=== PATIENT | female | born 1980 | race Caucasian/White ===

== ENCOUNTER → 2024-04-24 16:31 | Outpatient (REF) | payer BC, SELFPAY | LOC: HWWDC 16:31 | PROVIDERS: ATTENDING PHYSICIAN Nurse Practitioner; REFERRING PHYSICIAN Obstetrics & Gynecology | DX: Z12.31 Encounter for screening mammogram for malignant neoplasm of breast (principal) | CPT/HCPCS: 77063; 77067 ==

== ENCOUNTER → 2024-05-07 08:51 | Outpatient (REF) | payer BC, SELFPAY | LOC: WDC 08:51 | PROVIDERS: ATTENDING PHYSICIAN Nurse Practitioner | DX: R92.8 Other abnormal and inconclusive findings on diagnostic imaging of breast (principal) | CPT/HCPCS: 76642 ==

== ENCOUNTER → 2024-08-07 09:59 | Outpatient (REF) | payer BC, SELFPAY | LOC: HWRAD 09:59 | PROVIDERS: FAMILY PHYSICIAN Nurse Practitioner | DX: N93.9 Abnormal uterine and vaginal bleeding, unspecified (principal) | CPT/HCPCS: 76830; 76856 ==

== ENCOUNTER 2024-11-11 06:49 | Emergency (ER) | payer BC, SELFPAY ==
[2024-11-11] VITALS (13 sets, daily range): BP systolic 94–161; BP diastolic 69–91; BMI 30.7
[2024-11-11 07:07] LABS: % Eosinophils 7.3 % (0-6); % Immature Granulocytes 0.7 % (0-0.5); % Lymphocytes 34.1 % (20.5-51.1); % Monocytes 8.2 % (1.7-9.3); % Neutrophils 48.7 % (42.2-75.2); Absolute Basophils 0.1 10^3/uL (0-0.2); Absolute Eosinophils 0.7 10^3/uL (0-0.7); Absolute Immature Granulocytes 0.1 10^3/uL (0-0.05); Absolute Lymphocytes 3.1 10^3/uL (1.2-3.4); Absolute Monocytes 0.7 10^3/uL (0.1-0.6); Absolute Neutrophils 4.4 10^3/uL (1.4-6.5); Hematocrit 31.3 % (37.0-47.0); Hemoglobin 10.3 g/dL (12.0-16.0); Mean Corp Hgb Conc. 32.9 g/dL (33.0-37.0); Mean Corpuscular Hgb 28.9 pg (27.0-31.0); Mean Corpuscular Volume 87.9 fL (81.0-99.0); Mean Platelet Volume 9.1 fL (7.4-10.4); Nucleated Red Blood Cells % 0 %; Platelet Count 378 10^3/uL (130-400); Red Blood Cell Count 3.56 10^6/uL (4.20-5.40); Red Cell Dist. Width 12.9 % (11.5-14.5); White Blood Cell Count 9.1 10^3/uL (4.8-10.8)
[2024-11-11 07:26] LABS: ALT (SGPT) 16 U/L (0-35); AST (SGOT) 21 U/L (14-36); Albumin 4.5 g/dl (3.5-5.0); Alkaline Phosphatase 49 U/L (38-126); Blood Urea Nitrogen 13 mg/dl (7-17); Calcium 8.4 mg/dl (8.4-10.2); Carbon Dioxide 21 mmol/L (22-30); Chloride 105 mmol/L (98-107); Estimated Creatinine Clearance 99 ml/min; Glucose 122 mg/dl (70-99); Potassium 3.9 mmol/L (3.5-5.1); Sodium 140 mmol/L (135-145); Total Bilirubin 0.4 mg/dl (0.2-1.3); Total Protein 7.2 g/dl (6.3-8.2); eGFR > 60.00
[2024-11-11 08:34] LABS: HCG, Serum Qualitative Screen Negative
--- NOTE | 2024-11-11 08:42 | EDRN ---
still currently awaiting for a provider to see the pt
--- NOTE | 2024-11-11 09:00 | EDRN ---
the pt pressed the call kilpatrick and this RN entered the pts room, the pt stated that she needed to use the bathroom, the pt ambulated to the bathroom independently without difficulty and with no c/o lightheadedness or dizziness and the pt stated that
she bled again and needed a pad, this RN provided the pt with a pad, the pt was able to ambulate back to the stretcher within no issues, will continue to monitor the pt closely
--- NOTE | 2024-11-11 09:37 | EDRN ---
provider currently at the pts bedside
--- NOTE | 2024-11-11 09:46 | ED.GENMED ---
History of Present Illness
<Rhett Zamudio MD, Resident - Last Filed: 11/11/24 13:40>
General
Chief Complaint: Fainting/Passed Out
Source: patient
Exam Limitations: none
Time Seen by Provider: 11/11/24 09:16
Nursing documentation reviewed up to this point in time: agreed with
Travel History
Have you traveled to any high risk areas for coronavirus over the past 14 days?: No
Have you had any contact with someone who has COVID-19?: No
Do you have any symptoms of coronavirus? Fever > 100 degrees, chills, cough, shortness of breath, sore throat, loss of taste or smell, muscle aches, or headache?: No
History of Present Illness
History of Present Illness:
This is a 44-year-old female with PMH of ADPKD, anemia, exercise-induced asthma, who presented to the ED with dizziness and heavy vaginal bleeding. Patient reports that she she had a biopsy for uterine fibroid 2 weeks ago with mild bleeding that
continued to improve until early this morning when she started having heavy bleeding. She took 1 tablet of tranexamic acid and reports that it seemed to help. However patient decided to come to the ED due to dizziness and fear of passing out.
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 She also has mild hypogastric abdominal cramping since taking TXA. She denies family history of hemophilia. No nausea, vomiting, diarrhea, chest pain or
shortness of breath. She denies fever, chills, urinary symptoms.
Past History
<Rhett Zamudio MD, Resident - Last Filed: 11/11/24 13:40>
Past History
ED Past Medical History: Other (Autosomal dominant polycystic kidney disease)
ED Past Surgical History: and Gynecological (Uterine biopsy)
Social History
Tobacco: Non-smoker
Alcohol: Occasional
Personal:
Living: with family
Employment: Employed
Review of Systems
<Rhett Zamudio MD, Resident - Last Filed: 11/11/24 13:40>
Review of Systems
All Other Systems: ROS reviewed and negative except as documented in HPI and ROS
Phy Exam
<Rhett Zamudio MD, Resident - Last Filed: 11/11/24 13:40>
Physical Exam
Physical Exam:
GENERAL: Alert and oriented x 3, NAD. Afebrile
HEAD: NC/AT
OROPHARYNX: no exudate or ulcers.
EYE: pupils equal and reactive extraocular muscles
NECK: Supple, no significant adenopathy.
CARDIAC: Regular rate and rhythm without any obvious murmurs.
LUNGS: Normal breath sounds,normal-no rhonchi. Not bronchospastic.
ABDOMEN: Soft, 4/10 hypogastric tenderness, no peritoneal signs.
NEUROLOGICAL: Alert and oriented x 3. No focal neurological deficit.
SKIN: Warm and dry, no rash or lesion, no discoloration, skin intact.
MUSCULOSKELETAL: Full range of motion of extremities.
LYMPHATIC:No lymph nodes on his neck or supraclavicular area.
PSYCH: Normal and appropriate interaction.
Genitourinary Exam Female
Exam Female: vaginal bleeding
Vaginal Exam: blood
Vaginal Bleeding: clots
Visual exam of cervix: os closed
Course
<Rhett Zamudio MD, Resident - Last Filed: 11/11/24 13:40>
Orders/Labs/Results
Orders:
Orders
11/11/24 06:50
Electrocardiogram (*1) Urgent
Reason for Study: Vertigo / Dizzy
11/11/24 06:51
EKG- Treatment ONCE
11/11/24 06:59
ABO [Blood Group&Type] Urgent
Complete Blood Count/With Diff Urgent
Comprehensive Metabolic Panel Urgent
HCG, Serum Qualitative Screen Urgent
Comment: ADD ON
11/11/24 07:08
Add On- LAB Urgent
Tests Added?: HCG serum qualitative
11/11/24 07:21
ABO2 Urgent
BBK Wristband Number:
Associate notified that ABO2 has been ordered: ATIFF-ER
Date: 11/11/24
Time: 07:12
Lean Engineer ID: [id number]
11/11/24 11:26
H&H Stat
11/11/24 11:31
Ondansetron Injectable [Zofran] 4 mg .ROUTE .[facility]-MED ONE
11/11/24 11:32
Ondansetron Injectable [Zofran] 4 mg IV NOW STA
11/11/24 11:38
Lactated Ringers [Lr] 1,000 ml IV BOLUS
11/11/24 12:18
Tranexamic Acid 1000 mg/100 ml [Tranexamic Acid] 1,000 mg in 100 ml IV ONCE
Abnormal Lab Results
11/11/24 11/11/24
06:59 11:26
RBC 3.56 L 10^6/uL
(4.20-5.40)
Hgb 10.3 L g/dL 9.2 L g/dL
(12.0-16.0) (12.0-16.0)
Hct 31.3 L % 27.6 L %
(37.0-47.0) (37.0-47.0)
MCHC 32.9 L g/dL
(33.0-37.0)
Abs Immat Gran (auto) 0.1 H 10^3/uL
(0-0.05)
Absolute Monos (auto) 0.7 H 10^3/uL
(0.1-0.6)
Immature Gran % 0.7 H %
(0-0.5)
Eosinophils % 7.3 H %
(0-6)
Carbon Dioxide 21 L mmol/L
(22-30)
Glucose 122 H mg/dl
(70-99)
11/11/24 11:26
11/11/24 06:59
Vital Signs
Initial and Last Documented VS:
Initial Vital Signs
BP
161/91
11/11/24 06:50
Last Documented Vital Signs
Temp Pulse Resp BP Pulse Ox
98.0 F 87 11 116/80 99
11/11/24 07:07 11/11/24 12:30 11/11/24 12:30 11/11/24 12:00 11/11/24 12:30
<Francisco Billy, DO - Last Filed: 11/11/24 12:50>
Orders/Labs/Results
Orders:
Orders
11/11/24 06:50
Electrocardiogram (*1) Urgent
Reason for Study: Vertigo / Dizzy
11/11/24 06:51
EKG- Treatment ONCE
11/11/24 06:59
ABO [Blood Group&Type] Urgent
Complete Blood Count/With Diff Urgent
Comprehensive Metabolic Panel Urgent
HCG, Serum Qualitative Screen Urgent
Comment: ADD ON
11/11/24 07:08
Add On- LAB Urgent
Tests Added?: HCG serum qualitative
11/11/24 07:21
ABO2 Urgent
BBK Wristband Number:
Associate notified that ABO2 has been ordered: ATIFF-ER
Date: 11/11/24
Time: 07:12
Lean Engineer ID: [id number]
11/11/24 11:26
H&H Stat
11/11/24 11:31
Ondansetron Injectable [Zofran] 4 mg .ROUTE .[facility]-MED ONE
11/11/24 11:32
Ondansetron Injectable [Zofran] 4 mg IV NOW STA
11/11/24 11:38
Lactated Ringers [Lr] 1,000 ml IV BOLUS
11/11/24 12:18
Tranexamic Acid 1000 mg/100 ml [Tranexamic Acid] 1,000 mg in 100 ml IV ONCE
Abnormal Lab Results
11/11/24 11/11/24
06:59 11:26
RBC 3.56 L 10^6/uL
(4.20-5.40)
Hgb 10.3 L g/dL 9.2 L g/dL
(12.0-16.0) (12.0-16.0)
Hct 31.3 L % 27.6 L %
(37.0-47.0) (37.0-47.0)
MCHC 32.9 L g/dL
(33.0-37.0)
Abs Immat Gran (auto) 0.1 H 10^3/uL
(0-0.05)
Absolute Monos (auto) 0.7 H 10^3/uL
(0.1-0.6)
Immature Gran % 0.7 H %
(0-0.5)
Eosinophils % 7.3 H %
(0-6)
Carbon Dioxide 21 L mmol/L
(22-30)
Glucose 122 H mg/dl
(70-99)
11/11/24 11:26
11/11/24 06:59
Vital Signs
Initial and Last Documented VS:
Initial Vital Signs
BP
161/91
11/11/24 06:50
Last Documented Vital Signs
Temp Pulse Resp BP Pulse Ox
98.0 F 87 11 116/80 99
11/11/24 07:07 11/11/24 12:30 11/11/24 12:30 11/11/24 12:00 11/11/24 12:30
<Rhett Zamudio MD, Resident - Last Filed: 11/11/24 13:40>
MDM/Problems Addressed
MDM/Problems Addressed:
This is a 44-year-old female with history of uterine fibroid s/p uterine biopsy 2 weeks ago presenting with heavy bleeding that started this a.m. TXA this a.m. likely helping. Reports some abdominal cramping but otherwise hemodynamically stable.
She has a history of anemia from heavy menstrual bleeding and is on iron supplementation. Suspect hemorrhage from biopsy site. Will do a pelvic exam, get a pelvic/transvaginal ultrasound, give supportive care with IV fluid bolus. Consulted
[facility], Dr. Harris. Will call her FILM OR VIDEOTAPE EDITOR Dr. Lianne Esparza at [facility] to update them.
Chronic conditions affecting care: Other (Previous gynecological biopsy)
<Rhett Zamudio MD, Resident - Last Filed: 11/11/24 13:40>
*EKG
Interpreted by ED Provider?: Yes
EKG Intrepretation Date: 11/11/24
EKG Intrepretation Time: 06:50
Interpretation: abnormal
Comparison EKG: changes noted (NONSPECIFIC T WAVE ABNORMALITY NOW EVIDENT IN ANTERIOR LEADS)
Heart Rate: 94
Rate: normal
Rhythm: sinus
[place]: normal axis
Interval: normal interval
QRS Pattern: other (Low voltage)
Ischemia: no ischemia
*Critical Care Note
Total Time (30-74mins, 75-104mins- exclusive of procedures): Not Applicable
<Rhett Zamudio MD, Resident - Last Filed: 11/11/24 13:40>
Update Note
Update Note:
11: 10 pelvic exam completed with evacuation of large clots. Patient actively bleeding. Spoke to her PROFESSOR OF THEOLOGY Dr. Lianne Esparza from [facility]. Consulted [facility] PROFESSOR OF THEOLOGY, will see patient. Patient reports feeling nauseous, will give a
dose of Zofran. Will get H&H and transfuse if needed.
11: 30 H&H hemoglobin decreased from 10.3 to 9.2 possibly dilutional.
12: [address] Harris, [facility] gyne[facility], stable. Will give 1000 mg tranexamic acid by gynecology. We also give another bag of LR and discharge to follow-up with regular PROFESSOR OF THEOLOGY at [facility].
ED Attending Note
<Rhett Zamudio MD, Resident - Last Filed: 11/11/24 13:40>
ED Attending Note
ED Attending Note:
I have reviewed and agree with history and treatment plan by Rhett Zamudio MD. My exam revealed 44-year-old female no acute distress, no tachycardia. Pelvic exam with speculum revealed large amount of clot, removed from cervical os, minimal
bleeding after clot removed. Patient ambulates with difficulty. Patient seen by Dr. Harris, PROFESSOR OF THEOLOGY, who recommends patient follow-up with PROFESSOR OF THEOLOGY tomorrow as scheduled. 1000 mg TXA IV.
-
Portions of this chart may have been created with voice recognition software.� Occasional wrong word or��sound alike� substitutions may have occurred due to the inherent limitations of voice recognition software.
<Francisco Billy, DO - Last Filed: 11/11/24 12:50>
ED Attending Note
Patient seen and examined by attending physician: Yes
I performed a history and physical exam of patient and discussed management with resident, I reviewed resident's note and agree with documented findings and plan of care.: Yes
ED Attending Note:
I have reviewed and agree with history and treatment plan by Rhett Zamudio MD. My exam revealed 44-year-old female no acute distress, no tachycardia. Pelvic exam with speculum revealed large amount of clot, removed from cervical os, minimal
bleeding after clot removed. Patient ambulates with difficulty. Patient seen by Dr. Harris, PROFESSOR OF THEOLOGY, who recommends patient follow-up with PROFESSOR OF THEOLOGY tomorrow as scheduled. 1000 mg TXA IV.
Discharge Plan
Departure
Patient Disposition: Home (Routine Discharge)
Date of Disposition: 11/11/24
Time of Disposition: 13:24
Patient with high blood pressure during this ER visit?: Yes
Condition: Fair
Covid-19: Not Applicable
Discharge Problem:
Abnormal vaginal bleeding in premenopausal patient, Microcytic anemia, Acute dehydration
Instructions: Anemia caused by low iron, Heavy periods, Bleeding Between Periods
Prescriptions:
No Action
montelukast [Singulair] 10 mg Tablet
10 mg PO DAILY
Jynarque 30 mg Tablet
30 mg PO DAILY
Referrals:
Perri Tolbert CRNP [Family Provider] - Follow up in 2-3 days
Activity Restrictions/Additional Instructions:
It was a pleasure meeting you and taking part in your care. We hope for your continued healing and wellness. You presented to the emergency department with severe vaginal bleeding, and dizziness. Your labs showed mild anemia of 10.3 and 9.2 on
repeat after receiving 1 bag of IV fluid. Your pelvic exam with speculum revealed large amount of clot, removed from cervical os, with minimal bleeding after clot removed. You were also evaluated by the [facility] PROFESSOR OF THEOLOGY, Dr. Harris and was
treated with 1 g of tranexamic acid.
Please read discharge instructions in their entirety. However, they are for general education and may not describe your exact diagnosis at discharge. Information on your ER visit and medical conditions were discussed with you along with appropriate
follow up information.
Please take your medications as directed (2 tablets of 650 mg tranexamic acid in the next 7 hours), and follow up with your primary care provider and PROFESSOR OF THEOLOGY as scheduled tomorrow for any further evaluation, management and adjustments to your medication
regimen as necessary. Avoid taking aspirin at this time. You may take Tylenol for headache.
You may return to the emergency department if you start having weakness, continued heavy bleeding, fever, inability to walk, nausea, vomiting.
Please schedule a follow up appointment as directed. Call to schedule an appointment.
Please return to the emergency department with ANY change in, persisting, or worsening of symptoms. If any of your symptoms do not improve, or persist, or become more severe within 6-12 hours, please return to the emergency department for further
care. You may also return to the emergency department if you develop a headache, neck pain/stiffness, fever greater than 100.4F, chest pain, shortness of breath, persistent nausea, vomiting, slurred speech, difficulty walking, numbness/tingling,
weakness, signs of infection or any other symptoms that are worrisome to you.
If you have any questions or concerns please do not hesitate to call the Hospital at .
Interventions
Interventions:
*Risk Screen - Suicide Last Done: 11/11/24 07:07
*General Assessment Last Done: 11/11/24 07:07
*Neglect/Abuse Screening Last Done: 11/11/24 07:07
ED- Fall Risk Assessment Last Done: 11/11/24 07:07
*ED COVID-19 Vaccine History Last Done: 11/11/24 07:07
ED- Cardiac Assessment Last Done: 11/11/24 11:53
ED- Neurological Assessment Last Done: 11/11/24 11:53
Discharge Date and Time
Print Language: MAORI
--- NOTE | 2024-11-11 09:58 | EDRN ---
the pt pressed the call kilpatrick and this RN entered the pts room, the pt stated that she needed help getting changed because she bled again and needed to change her underwear and pants, this RN assisted the pt and helped to clean the pt up, this RN
notified the provider that this is the second bout of bleeding for the pt since being in the ED, will continue to monitor the pt closely
--- NOTE | 2024-11-11 10:13 | EDRN ---
still awaiting for orders from the provider
[2024-11-11] MEDS: ZOFRAN 4 MG IV (11:32)
[2024-11-11] MEDS: LR 1000 IV (11:43)
[2024-11-11 11:44] LABS: Hematocrit 27.6 % (37.0-47.0); Hemoglobin 9.2 g/dL (12.0-16.0)
[2024-11-11] MEDS: TRANEXAMIC ACID 100 IV (12:38)
== END 2024-11-11 14:20 | disposition home or self-care (01) ==
LOC: EMR 06:49
PROVIDERS: Student in an Organized Health Care Education/Training Program; EMERGENCY PHYSICIAN Emergency Medicine; FAMILY PHYSICIAN Nurse Practitioner Family; OTHER PHYSICIAN Obstetrics & Gynecology
DX: N93.8 Other specified abnormal uterine and vaginal bleeding (principal); E86.0 Dehydration; D50.9 Iron deficiency anemia, unspecified
CPT/HCPCS: 99284; 96374; 96375; 96361; 80053; 84703; 85014; 85018; 85025; 86900; 86901; 93005

== ENCOUNTER 2024-11-20 17:27 | Day surgery (SDC) | payer BC, SELFPAY ==
[2024-11-20] VITALS (28 sets, daily range): BP systolic 88–198; BP diastolic 70–116; BMI 32.3; BMI 31.4
[2024-11-20 10:57] LABS: HCG, Serum Qualitative Screen Negative
[2024-11-20 11:01] LABS: ALT (SGPT) 13 U/L (0-35); AST (SGOT) 19 U/L (14-36); Albumin 3.5 g/dl (3.5-5.0); Alkaline Phosphatase 53 U/L (38-126); Blood Urea Nitrogen 9 mg/dl (7-17); Calcium 8.7 mg/dl (8.4-10.2); Carbon Dioxide 19 mmol/L (22-30); Chloride 110 mmol/L (98-107); Estimated Creatinine Clearance 116 ml/min; Glucose 118 mg/dl (70-99); Potassium 4.1 mmol/L (3.5-5.1); Sodium 138 mmol/L (135-145); Total Bilirubin 0.4 mg/dl (0.2-1.3); Total Protein 5.9 g/dl (6.3-8.2); eGFR > 60.00
[2024-11-20 11:07] LABS: % Basophils 0.3 % (0-2); % Immature Granulocytes 0.4 % (0-0.5); % Lymphocytes 17.5 % (20.5-51.1); % Monocytes 5.6 % (1.7-9.3); % Neutrophils 75.2 % (42.2-75.2); Absolute Eosinophils 0.1 10^3/uL (0-0.7); Absolute Immature Granulocytes 0.1 10^3/uL (0-0.05); Absolute Monocytes 0.6 10^3/uL (0.1-0.6); Absolute Neutrophils 8.6 10^3/uL (1.4-6.5); Hematocrit 20.8 % (37.0-47.0); Hemoglobin 6.7 g/dL (12.0-16.0); Mean Corp Hgb Conc. 32.2 g/dL (33.0-37.0); Mean Corpuscular Hgb 27.6 pg (27.0-31.0); Mean Corpuscular Volume 85.6 fL (81.0-99.0); Mean Platelet Volume 9.1 fL (7.4-10.4); Nucleated Red Blood Cells % 0 %; Platelet Count 396 10^3/uL (130-400); Red Blood Cell Count 2.43 10^6/uL (4.20-5.40); Red Cell Dist. Width 13.3 % (11.5-14.5); White Blood Cell Count 11.4 10^3/uL (4.8-10.8)
--- NOTE | 2024-11-20 11:18 | ED.GENMED ---
History of Present Illness
<Dea Costa DO - Last Filed: 11/20/24 15:45>
General
Chief Complaint: Vaginal Bleeding
Time Seen by Provider: 11/20/24 10:21
History of Present Illness
History of Present Illness:
44-year-old female with history of anemia and heavy menstrual bleeding presenting to the emergency department with vaginal bleeding. Patient is status post uterine fibroid biopsy 3 weeks ago at [facility]. Following the procedure, did have
heavy bleeding. Was seen in the emergency department here on 11/12, found to have heavy bleeding and subsequently started on TXA. Patient has been taking TXA for the past week. She finished the course of TXA, so stopped on Monday (4 days ago),
however bleeding resumed the following day so she restarted the TXA. Bleeding worsened, prompting her to come back to the hospital for evaluation. She took 2 TXA prior to arrival. Notes that she is not passing very large clots and has been dizzy
upon standing. Denies difficulty breathing. Denies any history of blood transfusions. Does note some generalized abdominal cramping. Denies any fever. Denies additional acute medical complaint
Past History
<Dea Costa DO - Last Filed: 11/20/24 15:45>
Past History
ED Past Medical History: Other (Autosomal dominant polycystic kidney disease)
ED Past Surgical History: and Gynecological (Uterine biopsy)
Social History
Tobacco: Non-smoker
Alcohol: Occasional
Personal:
Living: with family
Employment: Employed
Phy Exam
<Dea Costa DO - Last Filed: 11/20/24 15:45>
Physical Exam
Physical Exam:
General: Well-appearing, no clinical signs of dehydration, nontoxic and in no acute distress
HEENT: protecting airway
Neck: appears supple
CV: Tachycardic, regular rhythm, no evidence of cyanosis
Resp: No accessory muscle use, no increased work of breathing, lungs clear to auscultation bilaterally
Abd: Soft and non-distended, mild tenderness to lower abdomen, no rebound or guarding
Extremities: No deformities, no swelling
Neuro: alert, no focal neurologic deficit
: Copious amount of blood on speculum exam with very large clots. Mild amount of pooling of blood in the vaginal vault once clots extracted
Rectal: deferred
Psych: Normal affect
Skin: Intact
Course
<Dea Costa, DO - Last Filed: 11/20/24 15:45>
Orders/Labs/Results
Orders:
Orders
11/20/24 10:30
Test Result ONCE
11/20/24 10:34
Type+Screen Urgent
Complete Blood Count/With Diff Urgent
Comprehensive Metabolic Panel Urgent
HCG, Serum Qualitative Screen Urgent
Comment: Notify provider if positive test present
11/20/24 11:50
* Blood Bank Products Urgent
Blood Bank Products: *Packed RBC Leuko(PRBC's)
Quantity: 1
Transfuse Today: Yes
Reason: Anemia
11/20/24 13:01
Blood Bank Products [* Blood Bank Products] Urgent
Blood Bank Products: *Packed RBC Leuko(PRBC's)
Quantity: 1
Transfuse Today: Yes
Reason: Anemia
11/20/24 13:13
Consult Interventional Radiology [IRAD CONSULT] Urgent
Consulting Provider: Justin Nam
Was physician already notified: Yes
Reason for Consult/Procedure: uterine artery embolization
Acknowledgement that appropriate orders are entered: Yes
11/20/24 13:49
Lidocaine 2% [Xylocaine 2% Mdv] 20 ml .ROUTE .[facility]
11/20/24 13:50
PT/INR [Prothrombin Time] Urgent
Comment: IRAD procedure
Heparin 1000 Units/500 ml [Heparin] 3,000 units in 1,500 ml .ROUTE .[facility]
11/20/24 14:42
Fentanyl Citrate/Pf [Sublimaze] 100 mcg .ROUTE .[facility]-MED ONE
Midazolam HCl [Versed] 2 mg .ROUTE .[facility]-MED ONE
11/20/24 14:55
Lidocaine HCl/Pf [Xylocaine-Mpf 1% Vial] 100 mg .ROUTE .[facility]-MED ONE
11/20/24 Dinner
Clear Liquid
At Your Request: Non-Participating
Does patient need a safe tray?: No
11/20/24 16:00
CeFAZolin 2 GRAM [Ancef] 2 grams in 10 ml IV IRAD
11/20/24 16:34
Acetaminophen [Tylenol] 650 mg PO Q6HPRN PRN
HYDROmorphone [Dilaudid] 0.5 mg IV Q2HPRN PRN
Ondansetron Injectable [Zofran] 4 mg IV Q6HPRN PRN
Oxycodone [Roxicodone] 5 mg PO Q4HPRN PRN
Activity As Directed
Activity Level: Bedrest for limited time
With Assistance
Bedrest duration in hours then activity as indicated above:: 2
Comment: bedrest as above with leg straight then out of bed w/ assist as tolerated
Catheter- Indwelling As Directed
Reason for insertion: Anne-Op Remove POD #1
May discontinue catheter when patient ambulating: Yes
Comment: remove when patient is out of bed and ambulating, by POD #1
at 0600
Intake/ Output As Directed
Frequency: Per unit guidelines
Notify MD As Directed
Notify physician if: if bleeding or oozing from arterial site, notifiy Interventional Radiology at ext [phone].
Pneumatic Compression Sleeves As Directed
Type: Thigh high
Comment: apply upon arrival to floor
Site Checks As Directed
Check access site for bleeding/hematoma: Yes
Comment: w/ each vital sign. Direct manual pressure over arterial site if
bleeding
Vascular Checks As Directed
Location: femoral pulses
Frequency: Other
Comment: with vital signs checks
Vital Signs As Directed
Frequency: Other
Additional Instructions:: q15min x 1hr, q1h x 4hr, q2h x 4hr, then q4hr.
monitor pain score & mentation when checking vital signs.
11/20/24 16:36
DX Deep Vein Thrombosis Video Routine
11/20/24 16:41
Admit Patient As Directed
Co-Sign Provider:
Level of Care: Post Proc/Surg Recovery
Assign to:: Medical/Surgical
Physician / Group: Viv/LISA
Diagnosis: Vaginal bleeding, anemia
Patient Condition: Fair
Reason for Overnight Stay: Bleeding/Bleeding Risk
PRN Pain Medication Management As Directed
May give lesser potent ordered pain med per pt: Yes
preference::
Protocol:: Medication orders for pain may be administered in a
manner that supports deferring to patient preference
when the pt is:
- Requesting an ordered lesser potent pain medication.
Least to most potent pain medications are defined
as: acetaminophen < NSAID < tramadol < opioids
(morphine, oxycodone, hydromorphone).
- Requesting a lesser dose of the same medication IF
ORDERED.
- Requesting a less intrusive route of administration
if both routes are prescribed by the provider (PO <
IV).
11/20/24 16:45
0.9% Sodium Chloride 1000 ml [Nss] 1,000 ml IV 100 mls/hr
0.9% Sodium Chloride 1000 ml [Nss] 1,000 ml IV 100 mls/hr
11/20/24 16:56
Albuterol [ProAIR HFA INHALER] 1 puff INH R Q4HPRN PRN
11/21/24 08:00
Blisovi 24 Fe 1 tablet PO DAILY
Montelukast Sodium [Singulair] 10 mg PO DAILY
tolvaptan (polycys kidney dis) [Jynarque] 30 mg PO DAILY
Abnormal Lab Results
11/20/24
10:34
WBC 11.4 H 10^3/uL
(4.8-10.8)
RBC 2.43 L 10^6/uL
(4.20-5.40)
Hgb 6.7 L* g/dL
(12.0-16.0)
Hct 20.8 L* %
(37.0-47.0)
MCHC 32.2 L g/dL
(33.0-37.0)
Abs Immat Gran (auto) 0.1 H 10^3/uL
(0-0.05)
Absolute Neuts (auto) 8.6 H 10^3/uL
(1.4-6.5)
Lymphocytes % 17.5 L %
(20.5-51.1)
Chloride 110 H mmol/L
(98-107)
Carbon Dioxide 19 L mmol/L
(22-30)
Glucose 118 H mg/dl
(70-99)
Total Protein 5.9 L g/dl
(6.3-8.2)
Crossmatch IS Only See Detail
11/20/24 10:34
11/20/24 10:34
Vital Signs
Initial and Last Documented VS:
Initial Vital Signs
Temp Pulse Resp BP Pulse Ox
98.8 F 115 16 134/86 100
11/20/24 10:21 11/20/24 10:21 11/20/24 10:21 11/20/24 10:21 11/20/24 10:21
Last Documented Vital Signs
Temp Pulse Resp BP Pulse Ox
98.7 F 89 13 137/83 100
11/20/24 17:34 11/20/24 17:34 11/20/24 17:34 11/20/24 17:34 11/20/24 17:34
<Rick Victoria MD - Last Filed: 11/20/24 17:41>
Orders/Labs/Results
Orders:
Orders
11/20/24 10:30
Test Result ONCE
11/20/24 10:34
Type+Screen Urgent
Complete Blood Count/With Diff Urgent
Comprehensive Metabolic Panel Urgent
HCG, Serum Qualitative Screen Urgent
Comment: Notify provider if positive test present
11/20/24 11:50
* Blood Bank Products Urgent
Blood Bank Products: *Packed RBC Leuko(PRBC's)
Quantity: 1
Transfuse Today: Yes
Reason: Anemia
11/20/24 13:01
Blood Bank Products [* Blood Bank Products] Urgent
Blood Bank Products: *Packed RBC Leuko(PRBC's)
Quantity: 1
Transfuse Today: Yes
Reason: Anemia
11/20/24 13:13
Consult Interventional Radiology [IRAD CONSULT] Urgent
Consulting Provider: Justin Nam
Was physician already notified: Yes
Reason for Consult/Procedure: uterine artery embolization
Acknowledgement that appropriate orders are entered: Yes
11/20/24 13:49
Lidocaine 2% [Xylocaine 2% Mdv] 20 ml .ROUTE .[facility]-MED ONE
11/20/24 13:50
PT/INR [Prothrombin Time] Urgent
Comment: IRAD procedure
Heparin 1000 Units/500 ml [Heparin] 3,000 units in 1,500 ml .ROUTE .[facility]
11/20/24 14:42
Fentanyl Citrate/Pf [Sublimaze] 100 mcg .ROUTE .[facility]-MED ONE
Midazolam HCl [Versed] 2 mg .ROUTE .[facility] ONE
11/20/24 14:55
Lidocaine HCl/Pf [Xylocaine-Mpf 1% Vial] 100 mg .ROUTE .[facility]-MED ONE
11/20/24 Dinner
Clear Liquid
At Your Request: Non-Participating
Does patient need a safe tray?: No
11/20/24 16:00
CeFAZolin 2 GRAM [Ancef] 2 grams in 10 ml IV IRAD
11/20/24 16:34
Acetaminophen [Tylenol] 650 mg PO Q6HPRN PRN
HYDROmorphone [Dilaudid] 0.5 mg IV Q2HPRN PRN
Ondansetron Injectable [Zofran] 4 mg IV Q6HPRN PRN
Oxycodone [Roxicodone] 5 mg PO Q4HPRN PRN
Activity As Directed
Activity Level: Bedrest for limited time
With Assistance
Bedrest duration in hours then activity as indicated above:: 2
Comment: bedrest as above with leg straight then out of bed w/ assist as tolerated
Catheter- Indwelling As Directed
Reason for insertion: Anne-Op Remove POD #1
May discontinue catheter when patient ambulating: Yes
Comment: remove when patient is out of bed and ambulating, by POD #1
at 0600
Intake/ Output As Directed
Frequency: Per unit guidelines
Notify MD As Directed
Notify physician if: if bleeding or oozing from arterial site, notifiy Interventional Radiology at ext [phone].
Pneumatic Compression Sleeves As Directed
Type: Thigh high
Comment: apply upon arrival to floor
Site Checks As Directed
Check access site for bleeding/hematoma: Yes
Comment: w/ each vital sign. Direct manual pressure over arterial site if
bleeding
Vascular Checks As Directed
Location: femoral pulses
Frequency: Other
Comment: with vital signs checks
Vital Signs As Directed
Frequency: Other
Additional Instructions:: q15min x 1hr, q1h x 4hr, q2h x 4hr, then q4hr.
monitor pain score & mentation when checking vital signs.
11/20/24 16:36
DX Deep Vein Thrombosis Video Routine
11/20/24 16:41
Admit Patient As Directed
Co-Sign Provider:
Level of Care: Post Proc/Surg Recovery
Assign to:: Medical/Surgical
Physician / Group: Viv/LISA
Diagnosis: Vaginal bleeding, anemia
Patient Condition: Fair
Reason for Overnight Stay: Bleeding/Bleeding Risk
PRN Pain Medication Management As Directed
May give lesser potent ordered pain med per pt: Yes
preference::
Protocol:: Medication orders for pain may be administered in a
manner that supports deferring to patient preference
when the pt is:
- Requesting an ordered lesser potent pain medication.
Least to most potent pain medications are defined
as: acetaminophen < NSAID < tramadol < opioids
(morphine, oxycodone, hydromorphone).
- Requesting a lesser dose of the same medication IF
ORDERED.
- Requesting a less intrusive route of administration
if both routes are prescribed by the provider (PO <
IV).
11/20/24 16:45
0.9% Sodium Chloride 1000 ml [Nss] 1,000 ml IV 100 mls/hr
0.9% Sodium Chloride 1000 ml [Nss] 1,000 ml IV 100 mls/hr
11/20/24 16:56
Albuterol [ProAIR HFA INHALER] 1 puff INH R Q4HPRN PRN
11/21/24 08:00
Blisovi 24 Fe 1 tablet PO DAILY
Montelukast Sodium [Singulair] 10 mg PO DAILY
tolvaptan (polycys kidney dis) [Jynarque] 30 mg PO DAILY
Abnormal Lab Results
11/20/24
10:34
WBC 11.4 H 10^3/uL
(4.8-10.8)
RBC 2.43 L 10^6/uL
(4.20-5.40)
Hgb 6.7 L* g/dL
(12.0-16.0)
Hct 20.8 L* %
(37.0-47.0)
MCHC 32.2 L g/dL
(33.0-37.0)
Abs Immat Gran (auto) 0.1 H 10^3/uL
(0-0.05)
Absolute Neuts (auto) 8.6 H 10^3/uL
(1.4-6.5)
Lymphocytes % 17.5 L %
(20.5-51.1)
Chloride 110 H mmol/L
(98-107)
Carbon Dioxide 19 L mmol/L
(22-30)
Glucose 118 H mg/dl
(70-99)
Total Protein 5.9 L g/dl
(6.3-8.2)
Crossmatch IS Only See Detail
11/20/24 10:34
11/20/24 10:34
Vital Signs
Initial and Last Documented VS:
Initial Vital Signs
Temp Pulse Resp BP Pulse Ox
98.8 F 115 16 134/86 100
11/20/24 10:21 11/20/24 10:21 11/20/24 10:21 11/20/24 10:21 11/20/24 10:21
Last Documented Vital Signs
Temp Pulse Resp BP Pulse Ox
98.7 F 89 13 137/83 100
11/20/24 17:34 11/20/24 17:34 11/20/24 17:34 11/20/24 17:34 11/20/24 17:34
<Dea Costa, DO - Last Filed: 11/20/24 15:45>
MDM/Problems Addressed
MDM/Problems Addressed:
44-year-old female with history of anemia presenting for persistent heavy vaginal bleeding after uterine biopsy 3 weeks ago. Vital signs and arrival for tachycardia.
On exam patient is resting comfortably, however does appear pale and is presently tachycardic. Arrives with saturated vaginal pad. On review of EMR, was seen in the hospital 2/ for the same symptoms, started on TXA with some interval improvement,
however symptoms appear to be persistent despite outpatient therapy. Patient notes that she had a hemoglobin checked outpatient and was 7.0. Concern for worsening anemia from heavy vaginal bleeding. Unclear source of the bleeding at this time.
On speculum exam, significant amount of bleeding and clots extracted. Plan for laboratory analysis including hemoglobin. Will consult with gynecology.
11:20 - Hemoglobin is now 6.7. Patient will require transfusion. Will consent. Will send message to gynecology for further recommendations and management. However at this time, given degree of anemia and persistent heavy vaginal bleeding, feel
patient warrants admission
13:00 -delay in disposition, gynecology on-call was scrubbed and in the OR. Subsequently discussed the case with Dr. Harris, who recommended consultation with IR for uterine artery embolization.
13:15 -IR is agreeable to doing the procedure and patient is also on board. Will continue with transfusion, remains hemodynamically stable. Dr. Harris is also recommending IV Premarin
13:30 - Dr. Lima to bedside to evaluate
13:50 - en route to IR
<Dea Costa DO - Last Filed: 11/20/24 15:45>
*Critical Care Note
Total Time (30-74mins, 75-104mins- exclusive of procedures): 38
comment:
The high probability of a clinically significant, sudden or life threatening deterioration of the genitourinary and hemodynamic system(s) required my full and direct attention, intervention and personal management. The aggregate critical care time
was 38 minutes. This time is in addition to time spent performing reported procedures but includes the following:
[x] Data Review and interpretation
[x] Patient assessment and monitoring of vital signs
[x] Documentation
[x] Medication orders and management
<Rick Victoria MD - Last Filed: 11/20/24 17:41>
Update Note
Update Note:
Patient will be admitted to ([facility] for observation, after UAE procedure and blood transfusion.
ED Attending Note
<Dea Costa DO - Last Filed: 11/20/24 15:45>
-
Portions of this chart may have been created with voice recognition software.� Occasional wrong word or��sound alike� substitutions may have occurred due to the inherent limitations of voice recognition software.
Discharge Plan
Departure
Patient Disposition: Admit
Date of Disposition: 11/20/24
Time of Disposition: 16:53
Admit to: Telemetry
Presentation/result/management discussed w/ accepting MD/DO:
Discharge Problem:
Vaginal bleeding, Anemia
Interventions
Interventions:
*Risk Screen - Suicide Last Done: 11/20/24 10:21
*General Assessment Last Done: 11/20/24 10:21
*Neglect/Abuse Screening Last Done: 11/20/24 10:21
*ED COVID-19 Vaccine History Last Done: 11/20/24 10:39
ED-Female Genitourinary Assessment Last Done: 11/20/24 10:39
[2024-11-20 14:21] LABS: INR 0.99; PT 13.6 Sec (11.4-14.6)
[2024-11-20] MEDS: ANCEF 10 IV (14:53)
--- NOTE | 2024-11-20 16:15 | EDRN ---
this AUTO SERVICER contacted IR nurse where the pt is currently in procedure and told IR nursing staff that the pts 1st unit of blood was started at 12:41pm (approx 3 hours and 30 minutes ago) and this blood transfusion needs to be finished infusing or
discarded by 4:41pm. IR staff verbalized understanding of all instructions.
--- NOTE | 2024-11-20 16:27 | EDRN ---
the pt is still in IR. this OVEN ROASTER called IR and spoke with IR staff Brittaney and notified Brittaney that the following alert message is on this pts TAR: 'Packed RBC Leukoreduced - unit#[id number] has been transfusing for 3 hours42 minutes and has
reached transfusion limit. the limit is 3 hours and 30 minutes.'
1630 - this OVEN ROASTER spoke with IR Nurse Chevy at this time who stated this pts blood transfusion end time was at 1625 with 0 remaining pRBCs leftover at 1625. Per Chevy, the pts vital signs at time the blood transfusion ended was 98.4 degrees F heart
rate 91 respiratory rate 15 blood pressure 155/95 oxygen saturation 100% on 2L NC O2. IR Chevy stated she is unable to chart the pts vital signs or complete this pts blood transfusion stating she does not have access to TAR in IR.
--- NOTE | 2024-11-20 17:02 | EDRN ---
Blood was ended and end VSS taken by Chevy Jorgensen RN while in IR at 16:25 11/20/24 Transcribing documentation in TAR
[2024-11-20] MEDS: ZOFRAN 4 MG IV (17:56)
[2024-11-20] MEDS: DILAUDID 0.5 MG IV (18:00)
--- NOTE | 2024-11-20 18:00 | HPS.HSE ---
Family Physician
-
Family Physician: HEATHER Noble
Chief Complaint
-
Vaginal bleeding
History of Present Illness
44yof with history of fibroids, anemia, underwent biopsy procedure for uterine fibroid three weeks ago. Had heavy vaginal bleeding post procedure. Seen in ED 11/12/24 for bleeding, anemia, started on tranexamic acid. Stopped taking briefly after
finishing course, however resumed when bleeding recurred. Now with persistent bleeding, lightheadedness.
Medical History
Past Medical History
Past Medical History: Reports Other (Polycystic kidney disease)
Additional Past Medical History:
Polycystic kidney disease
Fibroids
Menorrhagia
Past Surgical History: Reports
Additional Past Surgical History:
section x2
Social History
Tobacco: Non-smoker
Alcohol: None
Drug: None
Family History
Family History: Not pertinent
Allergies / Home Medications
Allergies reflects when Allergies were last updated in [facility].
Home Medications with original date entered in [facility]
Allergy/Medication List:
Albuterol inhaler
Montelukast
Blisovi
Jynarque
Tranexamic acid
Review of Systems
-
Respiratory: Reports No Symptoms
Cardiac: Reports No Symptoms
Abdomen/GI: Reports Other (Cramping)
: Reports Bleeding
Physical Exam
Vital Signs
Vital Signs
Temp Pulse Resp BP Pulse Ox
98.4 F 70 18 111/71 98
11/20/24 23:25 11/20/24 23:25 11/20/24 23:25 11/20/24 23:25 11/20/24 23:25
Physical Exam
General: Well Developed, Well Nourished, No Apparent Distress and Other (Pale)
Respiratory: Clear
Cardiac: Regular Rhythm and Tachycardia
Laboratory Results
-
11/21/24 06:58
11/20/24 10:34
Laboratory Results
PT 13.6 Sec (11.4-14.6) 11/20/24 13:50
INR 0.99 11/20/24 13:50
Total Bilirubin 0.4 mg/dl (0.2-1.3) 11/20/24 10:34
AST 19 U/L (14-36) 11/20/24 10:34
ALT 13 U/L (0-35) 11/20/24 10:34
Alkaline Phosphatase 53 U/L (38-126) 11/20/24 10:34
Data Reviewed
-
Lab Data: Labs Reviewed by me
Impression/Plan
-
IMPRESSION:Fibroids, persistent bleeding post reecent biopsy, symptomatic anemia.
PLAN: Uterine artery embolization
Patient is an appropriate candidate for uterine artery embolization. Technical aspects of the procedure, risks, benefits, and alternatives were discussed with the patient in detail. Risks including bleeding, infection, allergic reaction, non-target
embolization, need for hysterectomy, premature menopause. Per patient, no interest in future . Patient agreeable to proceed. Discussed expected post-procedure course.
[2024-11-20] MEDS: TYLENOL 650 MG PO (19:39)
[2024-11-20] MEDS: NSS 1000 IV (21:07)
[2024-11-20] MEDS: ROXICODONE 5 MG PO (21:44)
--- NOTE | 2024-11-20 22:42 | CON.MD ---
Consultation - Medical
-
Late entry note: Pt seen and examined by me earlier today. I was actually involved in emergency surgery with another patient at the time ER doctor Jey texted me about this patient
at 11:18 and again 12:00pm. Due to being in surgery, I did not realize my phone went off and had been silenced.. I received a critical priority message at 12:38 and was able to look at phone after my case at 12:56pm. I contacted ER to call Dr. Harris
who was covering for me while in OR with emergency case. She confirmed she did so and was in process of arranging for IRad consult.
44 yo female presented to ER today with report of heavy vaginal bleeding. She has hx of receiving care at [facility].
Reports heavy menses with hysteroscopy D&C approx 3 wks ago and hx fibroid uterus. Fibroid 'size of a lemon.' States endometrial biopsy was benign.
She came to 11/12 due to heavy bleeding. Took TXA for 5 days and stopped this Monday last week. REports started bleeding Monday and this worsened over past two days.
Called her provider. States started up TXA again on Monday but bleeding heavy with clots. Came to ER. Did not go to [facility]-prefers here because felt more responsive.
She was supposed to schedule for MRI as outpt. Was considering UAE for mgmt.
PMH: menorrhagia, fibroids, polycystic kidney disease
PSH: 2 csections, vulvar vestibulectomy for vulvar pain
ALL: NKDA
Meds: PNV
Sochx: negative Tob, Etoh, drug use
Meds: Jynarque for PKD
Famhx: MGM-kidney cancer
ROS: heavy bleeding and clots, flooding through clothes. Denies dizziness or lightheadedness
PE: VSS afeb
Cor reg
Pulm: clear
Abd: soft, NDNT
Pelvic deferred in ER
hgb 9.2-> 6.7 Receiving blood transfusion
A/P:
1. Menorrhagia
2 Fibroids
3. Anemia related to blood loss
Discussed plan with patient and . IRad is feasible option for mgmt given anemia and bleeding. Alternative is hysterectomy but pt prefers to avoid this as it is more invasive.
She reports her hysteroscopy D&C biopsy was benign. I do not have reports to confirm. Multiple emergencies today so I did not have time to call for records.
ER doc had contacted Dr. Harris since I was detained in emergency surgery for another patient at time ER was trying to contact me via [employer]. Dr. Harris had recommended they consult with IRad
and ER doctor had done so. I agree this is most appropriate plan to manage her symptoms now. I came to see pt when I was available after caring for other patient. She was sent to IRAD for procedure shortly after I saw her.
Being admitted to [facility] service after UAE/UFE.
Time spent in consultation 30 min.
[2024-11-21] MEDS: ROXICODONE 5 MG PO ×2 (04:18→13:11)
[2024-11-21 07:41] LABS: Hematocrit 23.8 % (37.0-47.0); Hemoglobin 7.9 g/dL (12.0-16.0); Mean Corp Hgb Conc. 33.2 g/dL (33.0-37.0); Mean Corpuscular Hgb 27.8 pg (27.0-31.0); Mean Corpuscular Volume 83.8 fL (81.0-99.0); Mean Platelet Volume 8.9 fL (7.4-10.4); Platelet Count 282 10^3/uL (130-400); Red Blood Cell Count 2.84 10^6/uL (4.20-5.40); Red Cell Dist. Width 14.6 % (11.5-14.5); White Blood Cell Count 9.9 10^3/uL (4.8-10.8)
[2024-11-21 08:00] VITALS: BP 122/75
[2024-11-21] MEDS: NSS 1000 IV (08:03)
[2024-11-21] MEDS: SINGULAIR 10 MG PO (08:04)
[2024-11-21] MEDS: TYLENOL 650 MG PO (08:04)
--- NOTE | 2024-11-21 11:24 | W.PN.UPDATE ---
Update Note
Progress Note Update
- Doing well this morning. Denies further bleeding/discharge
- Cramping/pelvic pain has subsided. Received 2U PRBCs with appropriate jumb in hgb
- Slight soreness at R groin. No hematoma or ecchymosis
- Will plan for d/c this afternoon. No need to follow up with us but recommend follow up with strategy consultant, either here or with previous provider
[2024-11-21 13:38] VITALS: BP 132/81
== END 2024-11-21 14:27 | disposition home or self-care (01) ==
LOC: SDS 17:27
PROVIDERS: Nurse Practitioner Gerontology; ATTENDING PHYSICIAN Radiology Vascular & Interventional Radiology; EMERGENCY PHYSICIAN Student in an Organized Health Care Education/Training Program; FAMILY PHYSICIAN Nurse Practitioner Family
DX: N92.0 Excessive and frequent menstruation with regular cycle (principal); D50.0 Iron deficiency anemia secondary to blood loss (chronic); Q61.2 Polycystic kidney, adult type; D25.9 Leiomyoma of uterus, unspecified; Z98.890 Other specified postprocedural states
CPT/HCPCS: 37243; 36246; 36430; 37244; 51702; 75736; 76937; 80053; 84703; 85025; 85027; 85610; 86850; 86900; 86901; 86920; 96374; 99152; 99153; 99291; C1769; C1887; J1410; P9016

== ENCOUNTER → 2025-01-29 09:57 | Outpatient (REF) | payer OTHER, SELFPAY ==
[2025-01-30 19:48] LABS: Rubella Positive
[2025-01-31 04:42] LABS: Hepatitis B Surface Antibody Negative
[2025-01-31 08:23] LABS: Quantiferon Mitogen minus NIL 9.95 IU/mL; Quantiferon NIL 0.05 IU/mL; Quantiferon Plus TB1 minus NIL 0.01 IU/mL (<=0.34); Quantiferon TB Gold Plus Negative (Negative)
== END ==
LOC: OHS 09:57
PROVIDERS: ATTENDING PHYSICIAN Nurse Practitioner Family
DX: Z23 Encounter for immunization (principal)
CPT/HCPCS: 36415; 86480; 86706; 86735; 86762; 86765; 86787

== ENCOUNTER → 2025-05-02 07:57 | Outpatient (REF) | payer BC, SELFPAY ==
[2025-05-02 09:24] LABS: Hematocrit 35.7 % (37.0-47.0); Hemoglobin 10.9 g/dL (12.0-16.0); Mean Corp Hgb Conc. 30.5 g/dL (33.0-37.0); Mean Corpuscular Volume 76.8 fL (81.0-99.0); Nucleated Red Blood Cells % 0 %; Platelet Count 390 10^3/uL (130-400); Red Cell Dist. Width 23.0 % (11.5-14.5)
[2025-05-02 09:58] LABS: ALT (SGPT) 15 U/L (0-35); AST (SGOT) 21 U/L (14-36); Albumin 4.6 g/dl (3.5-5.0); Alkaline Phosphatase 45 U/L (38-126); Blood Urea Nitrogen 14 mg/dl (7-17); Calcium 9.6 mg/dl (8.4-10.2); Carbon Dioxide 24 mmol/L (22-30); Chloride 108 mmol/L (98-107); Glucose 100 mg/dl (70-99); Iron 55 ug/dl (37-170); Potassium 5.0 mmol/L (3.5-5.1); Sodium 140 mmol/L (135-145); Total Protein 7.5 g/dl (6.3-8.2); eGFR > 60.00
[2025-05-02 10:07] LABS: Total Iron Binding Capacity 488 ug/dl (265-497)
[2025-05-02 10:33] LABS: Ferritin 5.4 ng/ml (6.24-137)
== END ==
LOC: REG 07:57
PROVIDERS: ATTENDING PHYSICIAN Nurse Practitioner
DX: D64.89 Other specified anemias (principal)
CPT/HCPCS: 36415; 80053; 82728; 83540; 83550; 85025

== ENCOUNTER → 2025-05-30 07:41 | Outpatient (REF) | payer BC, SELFPAY ==
[2025-05-30 08:33] LABS: Urine Character Clear (Clear)
[2025-05-30 08:37] LABS: Hematocrit 37.7 % (37.0-47.0); Hemoglobin 11.8 g/dL (12.0-16.0); Mean Corp Hgb Conc. 31.3 g/dL (33.0-37.0); Mean Corpuscular Volume 77.3 fL (81.0-99.0); Nucleated Red Blood Cells % 0 %; Platelet Count 419 10^3/uL (130-400); Red Cell Dist. Width 20.5 % (11.5-14.5)
[2025-05-30 09:39] LABS: Blood Urea Nitrogen 13 mg/dl (7-17); Calcium 10.0 mg/dl (8.4-10.2); Carbon Dioxide 24 mmol/L (22-30); Chloride 104 mmol/L (98-107); Glucose 102 mg/dl (70-99); Magnesium 1.9 mg/dl (1.6-2.3); Potassium 5.1 mmol/L (3.5-5.1); Sodium 137 mmol/L (135-145); Uric Acid 5.1 mg/dl (2.5-6.2); eGFR > 60.00
== END ==
LOC: REG 07:41
PROVIDERS: ATTENDING PHYSICIAN Internal Medicine; FAMILY PHYSICIAN Nurse Practitioner
DX: E66.3 Overweight (principal); E83.42 Hypomagnesemia; E87.8 Other disorders of electrolyte and fluid balance, not elsewhere classified; N18.31 Chronic kidney disease, stage 3a; N20.0 Calculus of kidney; Q61.2 Polycystic kidney, adult type; D64.9 Anemia, unspecified; E87.20 Acidosis, unspecified
CPT/HCPCS: 36415; 80048; 81003; 82570; 83735; 83970; 84100; 84156; 84550; 85025

== ENCOUNTER → 2025-06-04 06:56 | Outpatient (REF) | payer BC, SELFPAY | LOC: HWWDC 06:56 | PROVIDERS: ATTENDING PHYSICIAN Nurse Practitioner | DX: Z12.31 Encounter for screening mammogram for malignant neoplasm of breast (principal) | CPT/HCPCS: 77063; 77067 ==